=== PATIENT | female | born 1930 | race Hispanic/Latino ===

== ENCOUNTER 2019-08-03 10:06 | Outpatient (CLI) | payer MEDICARE ==
--- NOTE | 2019-08-03 10:47 | RAD ---
PA AND LATERAL VIEWS CHEST: Date: 08/03/2019 HISTORY: Low oxygen saturation. FINDINGS: There are no previous exams for comparison. The heart size is mildly enlarged. The aorta is tortuous. The lungs are expanded with mild infiltrate in the right lower lung. No pneumothoraces or large effusions are seen. A small left pleural effusio n versus scarring may be present. IMPRESSION: Findings are suspicious for right-sided pneumonia. POS: [facility]
== END 2019-08-03 10:07 | disposition home or self-care (01) ==
LOC: BICRAD 10:06
PROVIDERS: ATTEND Family Medicine
DX: Z00.00 Encounter for general adult medical examination without abnormal findings (principal); M54.9 Dorsalgia, unspecified; R09.02 Hypoxemia
CPT/HCPCS: 36415; 71046; 80053; 80061; 81001; 84443; 85025

== ENCOUNTER 2019-08-05 17:37 | Inpatient (IN) | payer MEDICARE, OTHER ==
[2019-08-05 18:41] LABS: #Lymphocytes 0.7 thou/uL (1.20-3.40); #Monocytes 0.9 thou/uL (0.11-0.59); #Neutrophils 6.2 thou/uL (1.40-6.50); %Basophils 0.1 % (0.0-1.0); %Eosinophils 0.1 % (0.0-10.0); %Lymphocytes 8.4 % (21.0-51.0); %Neutrophils 79.4 % (42.0-75.0); Hemoglobin 13.8 g/dL (12.0-16.0); Mean Corpuscular Hemoglobin 29.9 pg (27.0-31.0); Mean Corpuscular Volume 87.9 fL (78.0-98.0); Mean Platelet Volume 8.9 fL (7.4-10.4); Platelet Count 204 thou/uL (130-400); RBC Distribution Width 12.1 % (11.5-14.5); Red Blood Cell (RBC) Count 4.62 mill/uL (4.20-5.40); White Blood Cell (WBC) Count 7.8 thou/uL (4.8-10.8)
[2019-08-05] MEDS ORDERED: cefTRIAXone\\ROCEPHIN 2 GM VIAL ONE (19:04)
[2019-08-05] MEDS ORDERED: Sodium Chloride 0.9% 100 ML ONE (19:04)
[2019-08-05] MEDS ORDERED: Azithromycin 500 MG VIAL ONE (19:04)
[2019-08-05] MEDS ORDERED: Albuterol 200 PUFF (6.7GM INHALER) ONE (19:33)
[2019-08-05] MEDS ORDERED: Ondansetron PF 4 MG/2 ML Vial ONE (19:48)
--- NOTE | 2019-08-05 20:00 | RAD ---
CHEST ONE VIEW: 08/05/19 INDICATION: History of pneumonia. COMPARISON: Prior exam dated 08/03/19. FINDINGS: There are persistent areas of interstitial and air space opacity within the right lower lobe. Mild ca rdiomegaly is stable appearing. There is persistent blunting of the left costophrenic angle. No acute osseous abnormality is evident. IMPRESSION: 1. Persistent interstitial air space opacity of the right lower lobe suspicious for pneumonia. 2. Persistent blunting of the left costophrenic angle. POS: [facility]
[2019-08-05 20:09] LABS: ALT (SGPT) 13 U/L (8-55); AST (SGOT) 35 U/L (5-34); Albumin 2.4 g/dL (3.4-4.8); Alkaline Phosphatase 80 U/L (40-110); Anion Gap 10 mmol/L (10-20); BUN (Urea Nitrogen) 12 mg/dL (9.8-20.1); Bilirubin, Total 0.7 mg/dL (0.2-1.2); CRP (Inflammatory) 10.84 mg/dL (= or < 0.5); Calc. Creatinine Clearance 0 mL/min (70-130); Carbon Dioxide 25 mmol/L (23-31); Chloride 98 mmol/L (98-107); Estimated GFR-MDRD 83; Globulin 3.1 g/dL (2.4-3.5); Glucose 112 mg/dL (83-110); Potassium 3.3 mmol/L (3.5-5.1); Protein, Total 5.5 g/dL (6.0-8.3); Sodium 130 mmol/L (136-145)
--- NOTE | 2019-08-05 20:52 | PDOC.HHP ---
Hospitalist HPI - History of Present Illness Shortness of breath History of Present Illness: Patient with PMH of decreased hearing and HTN presents to ED for evaluation of worsening shortness of breath. She is a rather poor historian primarily due to her decreased hearing. Tells me that she has been sick for about 1-2 weeks with weakness/fatigue, body aches, mildly productive cough and shortness of breath. States that her shortness of breath started worsening yesterday hence decided to present for evaluation. Denies any sick contacts or known exposure to COVID19. Initial evaluation in ED reveals elderly female in no acute distress. Currently requiring 2L O2 NC. VS show low grade temperature of 100.1 but no fever. Only borderline tachycardia in the 110s. No leukocytosis, normal lactic acid, normal procalcitonin. Elevated D-dimer & CRP. Hospitalist ROS - Review of Systems Constitutional: reports: weakness, malaise. denies: fever, chills Eyes: denies: pain, conjunctivae inflammation ENT: denies: ear pain, nose pain, nose congestion, throat pain Respiratory: reports: cough, dry, shortness of breath, SOB with excertion, sputum (very mild sputum) Cardiovascular: denies: chest pain, palpitations, orthopnea, paroxysmal noc. dyspnea Gastrointestinal: denies: nausea, vomiting, abdominal pain, diarrhea Genitourinary: denies: dysuria, frequency, incontinence, hematuria Musculoskeletal: denies: neck pain Neurological: reports: weakness. denies: numbness, incoordination, change in speech - Exam General Appearance: NAD, awake alert Eye: PERRL ENT: normocephalic atraumatic ENT - other findings: Very hard of hearing Neck: supple, no JVD Heart: no murmur, normal peripheral pulses Respiratory - other findings: Bilateral rhonchi/rales Gastrointestinal: soft, non-tender, non-distended Extremities: no cyanosis, no clubbing, no edema Skin: normal turgor Neurological: cranial nerve grossly intact Musculoskeletal: normal tone, normal strength, no muscle wasting Psychiatric: normal affect, normal behavior, A&O x 3 Hospitalist Results - Labs Result Diagrams: 08/05/19 18:31 08/05/19 19:42 Lab results: WBC 7.8 thou/uL (4.8-10.8) 08/05/19 18:31 Hgb 13.8 g/dL (12.0-16.0) 08/05/19 18:31 Hct 40.6 % (36.0-47.0) 08/05/19 18:31 MCV 87.9 fL (78.0-98.0) 08/05/19 18:31 Plt Count 204 thou/uL (130-400) 08/05/19 18:31 Neutrophils % 79.4 % (42.0-75.0) H 08/05/19 18:31 Sodium 130 mmol/L (136-145) L 08/05/19 19:42 Potassium 3.3 mmol/L (3.5-5.1) L 08/05/19 19:42 Chloride 98 mmol/L (98-107) 08/05/19 19:42 Carbon Dioxide 25 mmol/L (23-31) 08/05/19 19:42 BUN 12 mg/dL (9.8-20.1) 08/05/19 19:42 Creatinine 0.67 mg/dL (0.6-1.1) 08/05/19 19:42 Glucose 112 mg/dL (83-110) H 08/05/19 19:42 Lactic Acid 2.0 mmol/L (0.5-2.2) 08/05/19 18:31 Calcium 7.0 mg/dL (7.8-10.44) L 08/05/19 19:42 Total Bilirubin 0.7 mg/dL (0.2-1.2) 08/05/19 19:42 AST 35 U/L (5-34) H 08/05/19 19:42 ALT 13 U/L (8-55) 08/05/19 19:42 Alkaline Phosphatase 80 U/L (40-110) 08/05/19 19:42 Troponin I 0.021 ng/mL (< 0.028) 08/05/19 18:31 C-Reactive Protein 10.84 mg/dL (= or < 0.5) H 08/05/19 19:42 B-Natriuretic Peptide 183.5 pg/mL (0-100) H 08/05/19 18:31 Serum Total Protein 5.5 g/dL (6.0-8.3) L 08/05/19 19:42 Albumin 2.4 g/dL (3.4-4.8) L 08/05/19 19:42 - Radiology Interpretation Chest x-ray Status: image reviewed by me (1. Persistent interstitial air space opacity of the right lower lobe suspicious for pneumonia. 2. Persistent blunting of the left costophrenic angle.) Hospitalist H&P A/P - Plan Plan: Problem List 1. Respiratory failure with hypoxia 2. Suspected COVID19 pneumonia 3. Dehydration with hyponatremia 4. Elevated D-dimer 5. History of hypertension Assessment/Plan 1. Respiratory failure with hypoxia - admit patient for further management - currently requiring 2 L O2 NC - titrate oxygen down as O2 sats allow - will hold off on use of steroids for now - start albuterol inhaler - COVID19 beign ruled out - IV ABX for empiric coverage while awaiting COVID19 results 2. Suspected COVID19 pneumonia - supportive care per above plan - check ferritin, LDH, CRP 3. Dehydration with hyponatremia - mild dehydration in setting of poor oral intake - continue with gentle IVFs - replace elctrolytes 4. Elevated D-dimer - in setting of acute infection possibly COVID19 - low concerns for VTE 5. History of hypertension - awaiting med rec - monitor hemodynamics closely DVT PPX: Lovenox
[2019-08-05] MEDS ORDERED: Acetaminophen 325 MG TAB PO PRN (22:05)
[2019-08-05] MEDS ORDERED: Loperamide HCl 2 MG CAP PO PRN (22:05)
[2019-08-05] MEDS ORDERED: Albuterol Sulfate 1.25 MG/3 ML NEB IPPB PRN (22:05)
[2019-08-05] MEDS ORDERED: Ondansetron PF 4 MG/2 ML Vial IVP PRN (22:05)
[2019-08-06] MEDS: Sodium Chloride 0.9% 1,000 ML IV SCH ×3 (03:14→17:41)
[2019-08-06 03:16] VITALS: BMI 20.1
[2019-08-06 06:20] LABS: Band 15 % (5-11); Hemoglobin 11.6 g/dL (12.0-16.0); Lymphocytes 5 % (21-51); MDiff Complete? YES; Mean Corpuscular HGB CONC 32.5 g/dL (32.0-36.0); Mean Corpuscular Hemoglobin 28.7 pg (27.0-31.0); Mean Corpuscular Volume 88.3 fL (78.0-98.0); Mean Platelet Volume 8.3 fL (7.4-10.4); Monocytes 15 % (0-10); Neutrophil 65 % (42-75); Platelet Count 185 thou/uL (130-400); Platelet Morphology Comment Appears Adequate; RBC Distribution Width 12.1 % (11.5-14.5); Red Blood Cell (RBC) Count 4.03 mill/uL (4.20-5.40); White Blood Cell (WBC) Count 6.4 thou/uL (4.8-10.8)
[2019-08-06 06:42] LABS: ALT (SGPT) 13 U/L (8-55); AST (SGOT) 28 U/L (5-34); Albumin 2.3 g/dL (3.4-4.8); Alkaline Phosphatase 67 U/L (40-110); Anion Gap 9 mmol/L (10-20); BUN (Urea Nitrogen) 11 mg/dL (9.8-20.1); Bilirubin, Total 0.6 mg/dL (0.2-1.2); Calc. Creatinine Clearance 50 mL/min (70-130); Calcium 7.2 mg/dL (7.8-10.44); Carbon Dioxide 25 mmol/L (23-31); Chloride 101 mmol/L (98-107); Estimated GFR-MDRD Greater than 90; Globulin 2.9 g/dL (2.4-3.5); Glucose 112 mg/dL (83-110); Potassium 3.4 mmol/L (3.5-5.1); Protein, Total 5.2 g/dL (6.0-8.3); Sodium 132 mmol/L (136-145)
[2019-08-06] MEDS: Enoxaparin Sodium 40 MG/0.4 ML SYRINGE SC SCH (08:19)
[2019-08-06] MEDS ORDERED: Prevnar 13-Val Conj/PF 0.5 ML SYRINGE IM ONE (09:00)
[2019-08-06] MEDS ORDERED: Azithromycin 500 MG in Sodium Chloride 0.9% 250 ML 250 ML IVPB SCH (10:00)
[2019-08-06] MEDS ORDERED: Potassium Citrate 10 MEQ TAB PO SCH (10:00)
--- NOTE | 2019-08-06 13:41 | PDOC.HOSPP ---
- Subjective Encounter Date: 08/06/19 Encounter Time: 12:20 Subjective: looks mildly ill, says not coughing much but some discomfort in the chest w.. coughing. overall feels ok, covid pending. - Objective Vital Signs & Weight: Vital Signs (12 hours) Temp Pulse Resp BP Pulse Ox 08/06/19 12:00 98.5 F 85 20 143/75 H 96 08/06/19 09:10 98.1 F 80 20 132/72 99 08/06/19 04:53 100 08/06/19 03:18 98.4 F 94 18 149/74 H 100 Weight Weight 110 lb 0.171 oz Result Diagrams: 08/06/19 05:53 08/06/19 05:53 Hospitalist ROS - Medication Medications: Active Medications Generic Name Dose Route Start Last Admin Trade Name Freq PRN Reason Stop Dose Admin Enoxaparin Sodium 40 mg 08/06/19 09:00 08/06/19 08:19 Lovenox SC 40 mg 0900 KIMI Administration Sodium Chloride 1,000 mls @ 100 mls/hr 08/05/19 22:15 08/06/19 08:20 Normal Saline 0.9% IV 1,000 mls .Q10H KIMI Administration - Exam General Appearance: NAD, awake alert Eye: PERRL ENT: normocephalic atraumatic Respiratory: CTAB, normal chest expansion Neurological: no focal deficits Psychiatric: A&O x 3 Hosp A/P - Plan 1. Respiratory failure with hypoxia 2. Suspected COVID19 pneumonia 3. Dehydration with hyponatremia 4. Elevated D-dimer 5. History of hypertension RLL penumonia per cxr -sats 96% w... 2 li O2 - d-dimer, ferrtin and crp high --monitor closely O2 sat s and get crp periodically --on ctx, zithro - also i am starting her on decadron and can dc once COVID r/o. -high risk for COVID as imflammatroy markers high, cxr w.. RLL infilterate and initial desats
[2019-08-06 14:55] LABS: SARS-CoV-2 MS2 Positive; SARS-CoV-2 N Gene Positive; SARS-CoV-2 S Gene Positive; SARS-CoV-2 orf1ab Positive
[2019-08-06] MEDS: cefTRIAXone\\ROCEPHIN 1 GM in Sodium Chloride 0.9% 100 ML IVPB SCH (16:50)
[2019-08-06] MEDS: Azithromycin 500 MG in Sodium Chloride 0.9% 250 ML 250 ML IVPB SCH (17:41)
[2019-08-07] MEDS: Sodium Chloride 0.9% 1,000 ML IV SCH ×2 (04:26→16:16)
[2019-08-07] MEDS: Enoxaparin Sodium 40 MG/0.4 ML SYRINGE SC SCH (08:03)
[2019-08-07 08:34] LABS: Band 10 % (5-11); Hemoglobin 10.6 g/dL (12.0-16.0); Lymphocytes 7 % (21-51); MDiff Complete? YES; Mean Corpuscular HGB CONC 34.1 g/dL (32.0-36.0); Mean Corpuscular Hemoglobin 30.5 pg (27.0-31.0); Mean Corpuscular Volume 89.4 fL (78.0-98.0); Mean Platelet Volume 8.1 fL (7.4-10.4); Monocytes 5 % (0-10); Neutrophil 78 % (42-75); Platelet Count 195 thou/uL (130-400); RBC Distribution Width 12.2 % (11.5-14.5); Red Blood Cell (RBC) Count 3.48 mill/uL (4.20-5.40); White Blood Cell (WBC) Count 5.5 thou/uL (4.8-10.8)
[2019-08-07] MEDS ORDERED: Dexamethasone 4 mg/ml Vial SLOW IVP SCH (09:00)
[2019-08-07] MEDS: cefTRIAXone\\ROCEPHIN 1 GM in Sodium Chloride 0.9% 100 ML IVPB SCH (16:17)
[2019-08-07] MEDS: Azithromycin 500 MG in Sodium Chloride 0.9% 250 ML 250 ML IVPB SCH (17:14)
--- NOTE | 2019-08-07 17:49 | PDOC.HOSPP ---
- Subjective Encounter Date: 08/07/19 Encounter Time: 17:47 Subjective: Ms. Lerma was seen today in follow-up of COVID infection. She says she feels ok. She noted a little phlem in her throat, that makes her want to cough, otherwise no problems. - Objective Vital Signs & Weight: Vital Signs (12 hours) Temp Pulse Resp BP Pulse Ox 08/07/19 16:20 98.4 F 84 20 160/76 H 94 L 08/07/19 12:00 98.1 F 84 18 168/80 H 94 L 08/07/19 08:05 98.0 F 85 20 158/75 H 94 L 08/07/19 08:00 94 L Weight Weight 110 lb 0.171 oz I&O: 08/06/19 08/07/19 08/08/19 06:59 06:59 06:59 Intake Total 1680 Balance 1680 Result Diagrams: 08/07/19 06:38 08/06/19 05:53 Hospitalist ROS - Medication Medications: Active Medications Generic Name Dose Route Start Last Admin Trade Name Freq PRN Reason Stop Dose Admin Acetaminophen 650 mg 08/05/19 22:05 08/07/19 04:26 Tylenol PO 650 mg Q4H PRN Administration Headache/Fever/Mild Pain (1-3) Dexamethasone 6 mg 08/07/19 09:00 08/07/19 08:06 Decadron SLOW IVP 6 mg DAILY KIMI Administration Enoxaparin Sodium 40 mg 08/06/19 09:00 08/07/19 08:03 Lovenox SC 40 mg 0900 KIMI Administration Sodium Chloride 1,000 mls @ 100 mls/hr 08/05/19 22:15 08/07/19 16:16 Normal Saline 0.9% IV 1,000 mls .Q10H KIMI Administration Ceftriaxone Sodium 1 gm/ 100 mls @ 200 mls/hr 08/06/19 17:00 08/07/19 16:17 Sodium Chloride IVPB 100 mls 1700 KIMI Administration Azithromycin 500 mg/ Sodium 250 mls @ 250 mls/hr 08/06/19 18:00 08/07/19 17: 14 Chloride IVPB 250 mls 1800 KIMI Administration - Exam Eye: PERRL, anicteric sclera Heart: RRR, no murmur, no gallops, no rubs Respiratory: rales (+ rales bilaterally, no rhonchi) Gastrointestinal: soft, non-tender, non-distended, normal bowel sounds, no palpable masses Extremities: no cyanosis (good distal pulses, ( d.p.) bilaterally), no edema Hosp A/P (1) Pneumonia due to COVID-19 virus Code(s): U07.1 - COVID-19; J12.89 - OTHER VIRAL PNEUMONIA Status: Acute (2) Acute respiratory failure with hypoxia Code(s): J96.01 - ACUTE RESPIRATORY FAILURE WITH HYPOXIA Status: Acute (3) Hypertension Code(s): I10 - ESSENTIAL (PRIMARY) HYPERTENSION Status: Chronic - Plan * Pneumonia due to COVID-19- continue supportive care * Will continue to trend Inflammatory markers * HTN- blood pressure is slightly elevated- will monitor- re-start home medications ( Losartan, but hold Hydrochlorothiazide ) * Will discontinue IV fluids, and dexamethazone
[2019-08-07] MEDS ORDERED: Non-Formulary Item 1 EACH (Albuterol Sulfate 2 PUFF) INH PRN (17:51)
[2019-08-07] MEDS ORDERED: Albuterol 200 PUFF (6.7GM INHALER) INH PRN (18:01)
[2019-08-08 06:28] LABS: Anion Gap 9 mmol/L (10-20); BUN (Urea Nitrogen) 8 mg/dL (9.8-20.1); Calc. Creatinine Clearance 56 mL/min (70-130); Calcium 7.9 mg/dL (7.8-10.44); Carbon Dioxide 26 mmol/L (23-31); Chloride 105 mmol/L (98-107); Estimated GFR-MDRD Greater than 90; Glucose 120 mg/dL (83-110); Potassium 4.2 mmol/L (3.5-5.1); Sodium 136 mmol/L (136-145)
[2019-08-08] MEDS: Enoxaparin Sodium 40 MG/0.4 ML SYRINGE SC SCH (07:41)
[2019-08-08] MEDS: Losartan 25 MG TAB PO SCH (07:41)
[2019-08-08] MEDS: Folic Acid/Vit B Comp W-C PO SCH (09:19)
[2019-08-08] MEDS: Saccharomyces boulardii 250 MG CAP PO SCH (09:19)
[2019-08-08] MEDS: Ascorbic Acid 500 mg Chewable Tablet PO SCH (09:19)
--- NOTE | 2019-08-08 16:03 | PDOC.HOSPP ---
- Subjective Encounter Date: 08/08/19 Encounter Time: 16:01 Subjective: Ms. Lerma was seen today in follow-up of COVID infection. She says she feels fine. No complaints. She denies feeling short of breath, except when she is up to go to the bathroom, or walk some in the room. - Objective Vital Signs & Weight: Vital Signs (12 hours) Temp Pulse Resp BP Pulse Ox 08/08/19 12:25 98.0 F 88 20 153/75 H 94 L 08/08/19 08:00 94 L 08/08/19 07:52 97.7 F 91 20 165/84 H 94 L 08/08/19 04:25 97.8 F 74 18 96 Weight Weight 110 lb 0.171 oz I&O: 08/07/19 08/08/19 08/09/19 06:59 06:59 06:59 Intake Total 1680 1840 Balance 1680 1840 Result Diagrams: 08/07/19 06:38 08/08/19 05:34 Hospitalist ROS - Medication Medications: Active Medications Generic Name Dose Route Start Last Admin Trade Name Freq PRN Reason Stop Dose Admin Acetaminophen 650 mg 08/05/19 22:05 08/07/19 04:26 Tylenol PO 650 mg Q4H PRN Administration Headache/Fever/Mild Pain (1-3) Ascorbic Acid 1,000 mg 08/08/19 09:00 08/08/19 09:19 Vitamin C PO 1,000 mg DAILY KIMI Administration Enoxaparin Sodium 40 mg 08/06/19 09:00 08/08/19 07:41 Lovenox SC 40 mg 0900 KIMI Administration Azithromycin 500 mg/ Sodium 250 mls @ 250 mls/hr 08/06/19 18:00 08/07/19 17: 14 Chloride IVPB 250 mls 1800 KIMI Administration Losartan Potassium 50 mg 08/08/19 09:00 08/08/19 07:41 Cozaar PO 50 mg DAILY KIMI Administration Saccharomyces Boulardii 250 mg 08/08/19 09:00 08/08/19 09:19 Florastor PO 250 mg DAILY KIMI Administration Vitamin B Complex/Vit C/Folic Acid 1 tab 08/08/19 09:00 08/08/19 09:19 Nephro-Layne Tablet PO 1 tab DAILY KIMI Administration - Exam Eye: PERRL, anicteric sclera Heart: RRR, no murmur, no gallops, no rubs, normal peripheral pulses Respiratory: rales (+ rales bilaterally to about mid lung field.) Gastrointestinal: soft, non-tender, non-distended, normal bowel sounds, no palpable masses Extremities: no cyanosis, no edema Hosp A/P (1) Pneumonia due to COVID-19 virus Code(s): U07.1 - COVID-19; J12.89 - OTHER VIRAL PNEUMONIA Status: Acute (2) Acute respiratory failure with hypoxia Code(s): J96.01 - ACUTE RESPIRATORY FAILURE WITH HYPOXIA Status: Acute (3) Hypertension Code(s): I10 - ESSENTIAL (PRIMARY) HYPERTENSION Status: Chronic - Plan * Pneumonia due to COVID-19- continue supportive care * Oxygen has been weaned down to 2 liters * Will continue to trend Inflammatory markers * HTN- blood pressure is slightly elevated- after Losartan . Will add Hydralazine as needed * Hopefully home in 1-2 days if she continues to improve
[2019-08-08] MEDS: Azithromycin 500 MG in Sodium Chloride 0.9% 250 ML 250 ML IVPB SCH (17:20)
[2019-08-09 06:34] LABS: Anion Gap 10 mmol/L (10-20); BUN (Urea Nitrogen) 9 mg/dL (9.8-20.1); CRP (Inflammatory) 5.04 mg/dL (= or < 0.5); Calc. Creatinine Clearance 58 mL/min (70-130); Calcium 8.3 mg/dL (7.8-10.44); Carbon Dioxide 26 mmol/L (23-31); Chloride 105 mmol/L (98-107); Estimated GFR-MDRD Greater than 90; Glucose 83 mg/dL (83-110); Potassium 3.8 mmol/L (3.5-5.1); Sodium 137 mmol/L (136-145)
[2019-08-09 07:18] LABS: Hemoglobin 12.3 g/dL (12.0-16.0); Mean Corpuscular Hemoglobin 29.4 pg (27.0-31.0); Mean Corpuscular Volume 89.2 fL (78.0-98.0); Mean Platelet Volume 8.4 fL (7.4-10.4); Platelet Count 287 thou/uL (130-400); RBC Distribution Width 12.1 % (11.5-14.5); Red Blood Cell (RBC) Count 4.19 mill/uL (4.20-5.40); White Blood Cell (WBC) Count 7.9 thou/uL (4.8-10.8)
[2019-08-09] MEDS: Ascorbic Acid 500 mg Chewable Tablet PO SCH (07:41)
[2019-08-09] MEDS: Enoxaparin Sodium 40 MG/0.4 ML SYRINGE SC SCH (07:41)
[2019-08-09] MEDS: Folic Acid/Vit B Comp W-C PO SCH (07:41)
[2019-08-09] MEDS: Saccharomyces boulardii 250 MG CAP PO SCH (07:41)
[2019-08-09] MEDS: Losartan 25 MG TAB PO SCH (07:41)
[2019-08-09 10:55] LABS: Lymphocytes 2 % (21-51); MDiff Complete? YES; Monocytes 8 % (0-10); Neutrophil 90 % (42-75); Platelet Morphology Comment Appears Adequate
[2019-08-09] MEDS ORDERED: Azithromycin 250 MG TAB PO SCH (12:45)
[2019-08-09] MEDS: hydrALAZINE 25 MG TAB PO PRN (14:31)
--- NOTE | 2019-08-09 16:45 | PDOC.HOSPP ---
- Subjective Encounter Date: 08/09/19 Encounter Time: 16:42 Subjective: Ms. Lerma was seen today in follow-up of COVID pneumonia. She says she feels fine. She denies chest pain or dyspnea. - Objective Vital Signs & Weight: Vital Signs (12 hours) Temp Pulse Resp BP Pulse Ox 08/09/19 15:48 98.4 F 91 18 166/81 H 93 L 08/09/19 11:40 97.8 F 87 18 180/99 H 95 08/09/19 07:45 98.2 F 92 20 184/95 H 93 L 08/09/19 07:41 93 L 08/09/19 04:55 97.8 F 83 16 150/82 H 93 L Weight Weight 110 lb 0.171 oz I&O: 08/08/19 08/09/19 08/10/19 06:59 06:59 06:59 Intake Total 1840 1570 Balance 1840 1570 Result Diagrams: 08/09/19 05:15 08/09/19 05:15 Hospitalist ROS - Medication Medications: Active Medications Generic Name Dose Route Start Last Admin Trade Name Freq PRN Reason Stop Dose Admin Acetaminophen 650 mg 08/05/19 22:05 08/07/19 04:26 Tylenol PO 650 mg Q4H PRN Administration Headache/Fever/Mild Pain (1-3) Ascorbic Acid 1,000 mg 08/08/19 09:00 08/09/19 07:41 Vitamin C PO 1,000 mg DAILY KIMI Administration Azithromycin 500 mg 08/09/19 12:45 08/09/19 14:31 Zithromax PO 08/09/19 23:59 500 mg ONE KIMI Administration Enoxaparin Sodium 40 mg 08/06/19 09:00 08/09/19 07:41 Lovenox SC 40 mg 0900 KIMI Administration Hydralazine HCl 25 mg 08/09/19 14:02 08/09/19 14:31 Apresoline PO 25 mg TIDPRN PRN Administration SBP Greater Than 170 Losartan Potassium 50 mg 08/08/19 09:00 08/09/19 07:41 Cozaar PO 50 mg DAILY KIMI Administration Saccharomyces Boulardii 250 mg 08/08/19 09:00 08/09/19 07:41 Florastor PO 250 mg DAILY KIMI Administration Vitamin B Complex/Vit C/Folic Acid 1 tab 08/08/19 09:00 08/09/19 07:41 Nephro-Layne Tablet PO 1 tab DAILY KIMI Administration - Exam Eye: PERRL, anicteric sclera Heart: RRR, no murmur, no gallops, no rubs, normal peripheral pulses Respiratory: CTAB, rales Gastrointestinal: soft, non-tender, non-distended, normal bowel sounds, no palpable masses Extremities: no cyanosis, no clubbing, no edema Skin: normal turgor, no rashes Hosp A/P (1) Pneumonia due to COVID-19 virus Code(s): U07.1 - COVID-19; J12.89 - OTHER VIRAL PNEUMONIA Status: Acute (2) Acute respiratory failure with hypoxia Code(s): J96.01 - ACUTE RESPIRATORY FAILURE WITH HYPOXIA Status: Acute (3) Hypertension Code(s): I10 - ESSENTIAL (PRIMARY) HYPERTENSION Status: Chronic - Plan * Pneumonia due to COVID-19- continue supportive care * Her inflammatory markers have continued to decline * Her oxygen saturations remained stable off supplemental oxygen at rest. it was around 92%. However not assessed with ambulation * Likely discharge home today or tomorrow, possibly with oxygen if her saturations drop with ambulation
[2019-08-10] MEDS: hydrALAZINE 25 MG TAB PO PRN (05:52)
[2019-08-10] MEDS: Enoxaparin Sodium 40 MG/0.4 ML SYRINGE SC SCH (08:47)
[2019-08-10] MEDS: Losartan 25 MG TAB PO SCH (08:48)
[2019-08-10] MEDS: Folic Acid/Vit B Comp W-C PO SCH (08:48)
[2019-08-10] MEDS: Saccharomyces boulardii 250 MG CAP PO SCH (08:48)
[2019-08-10] MEDS: Ascorbic Acid 500 mg Chewable Tablet PO SCH (08:49)
[2019-08-10] MEDS ORDERED: Azithromycin 250 MG TAB PO SCH (09:00)
[2019-08-10 10:18] VITALS: BP 164/80; TEMP 98.1
--- NOTE | 2019-08-10 12:43 | PDOC.HOSPP ---
- Subjective Encounter Date: 08/10/19 Encounter Time: 12:41 Subjective: Ms. Lerma was seen today in follow-up of COVID infection. She is feeling well. She is anxious to go home. - Objective Vital Signs & Weight: Vital Signs (12 hours) Temp Pulse Resp BP BP Pulse Ox 08/10/19 08:00 98.1 F 81 18 164/80 H 93 L 08/10/19 05:52 172/92 H 08/10/19 04:50 98.2 F 92 16 172/92 H 92 L Weight Weight 110 lb 0.171 oz I&O: 08/09/19 08/10/19 08/11/19 06:59 06:59 06:59 Intake Total 1570 1490 240 Balance 1570 1490 240 Result Diagrams: 08/09/19 05:15 08/09/19 05:15 Hospitalist ROS - Medication Medications: Active Medications Generic Name Dose Route Start Last Admin Trade Name Freq PRN Reason Stop Dose Admin Acetaminophen 650 mg 08/05/19 22:05 08/07/19 04:26 Tylenol PO 650 mg Q4H PRN Administration Headache/Fever/Mild Pain (1-3) Ascorbic Acid 1,000 mg 08/08/19 09:00 08/10/19 08:49 Vitamin C PO 1,000 mg DAILY KIMI Administration Azithromycin 500 mg 08/10/19 09:00 08/10/19 08:48 Zithromax PO 500 mg DAILY KIMI Administration Enoxaparin Sodium 40 mg 08/06/19 09:00 08/10/19 08:47 Lovenox SC 40 mg 0900 KIMI Administration Hydralazine HCl 25 mg 08/09/19 14:02 08/10/19 05:52 Apresoline PO 25 mg TIDPRN PRN Administration SBP Greater Than 170 Losartan Potassium 50 mg 08/08/19 09:00 08/10/19 08:48 Cozaar PO 50 mg DAILY KIMI Administration Saccharomyces Boulardii 250 mg 08/08/19 09:00 08/10/19 08:48 Florastor PO 250 mg DAILY KIMI Administration Vitamin B Complex/Vit C/Folic Acid 1 tab 08/08/19 09:00 08/10/19 08:48 Nephro-Layne Tablet PO 1 tab DAILY KIMI Administration - Exam Eye: PERRL, anicteric sclera Heart: RRR, no murmur, no gallops, no rubs, normal peripheral pulses Respiratory: rales (faint rales at both bases) Gastrointestinal: soft, non-tender, non-distended, normal bowel sounds, no palpable masses Extremities: no cyanosis, no edema Hosp A/P (1) Pneumonia due to COVID-19 virus Code(s): U07.1 - COVID-19; J12.89 - OTHER VIRAL PNEUMONIA Status: Acute (2) Acute respiratory failure with hypoxia Code(s): J96.01 - ACUTE RESPIRATORY FAILURE WITH HYPOXIA Status: Acute (3) Hypertension Code(s): I10 - ESSENTIAL (PRIMARY) HYPERTENSION Status: Chronic - Plan * Pneumonia due to COVID-19- improved. She continues to desaturate with ambulation * Will order home oxygen, and once this is arranged she can be discharge home.
--- NOTE | 2019-08-11 02:22 | DIS ---
DATE OF ADMISSION: 08/05/2019 DATE OF DISCHARGE: 08/10/2019 PRIMARY CARE PHYSICIAN: Wan Randall MD DISCHARGE DIAGNOSES: 1. COVID-19 pneumonia. 2. Acute respiratory failure secondary to #1. 3. Hypertension. 4. Dehydration and mild hyponatremia. DISCHARGE MEDICATIONS: Include: 1. Vitamin C 1000 mg daily. 2. Cozaar 50 mg daily. 3. Hydrochlorothiazide 12.5 mg daily. 4. ProAir inhaler 2 puffs q.6 as needed. CODE STATUS: Full code. ALLERGIES: NO KNOWN DRUG ALLERGIES. HOSPITAL COURSE: Ms. Lerma is a very pleasant 88-year-old female, who was admitted to the hospital after she was having shortness of breath. She never had fever. She had been sick for about 1 to 2 weeks with weakness and body aches and fatigue. There was concern for possible COVID exposure and therefore a screen was done. This came back positive. She was admitted to the hospital and monitored under supportive care. She was placed on azithromycin. Inflammatory markers were trended and when her inflammatory markers began to trend down and her need for supplemental oxygen was reduced, she was able to be discharged home to have close outpatient followup. She was discharged home with home oxygen. In that, her O2 saturation at rest was above 90, but when she got up and moved around, she desaturated and for this reason, she will be sent home with temporary home oxygen. Job ID: [id number]
--- NOTE | 2019-08-13 03:00 | PQF ---
Fely Lerma TONI MD [id number] CLINICAL DOCUMENTATION CLARIFICATION FORM: POST DISCHARGE Addendum to original discharge summary date: ____ Late entry note date: __ DATE: 08/13/2019 ATTN: Alireza Gomez Please exercise your independent, professional judgment in responding to the clarification form. Clinical indicators are provided on the bottom of this form for your review Please check appropriate box(s) to clarify if the following diagnosis has been ruled in or ruled out: Sepsis [ X ] Ruled in diagnosis [ X] Continue to treat [ ] Resolved [ ] Ruled out diagnosis [ ] Cannot rule out diagnosis [ ] Other diagnosis [ ] Unable to determine For continuity of documentation, please document condition throughout progress notes and discharge summary. Thank You. CLINICAL INDICATORS - SIGNS / SYMPTOMS / LABS Covid 19 PCR 08/04 Positive Blood culture 08/04 No growth in 5 days Laboratory 08/04 WBC 7.8, Neutrophils 79.4, Plt count 204, Band 15, Lactic acid 2.0 Vital signs 08/04 BP 121/67, Pulse 112, Resp 30, Temp 100.1 Chest X-ray 08/04 Impression: RLL infiltrates ED notes p3 08/04 SIRS scoring: Yes, patient did meets at least 2 criteria ED notes p10 08/04 Pneumonia, Sepsis H&p p2 08/04 Covid 19 Pneumonia H&p p2 08/04 Respiratory failure with hypoxia RISK FACTORS H&p p1 08/04 88 year-old H&p p2 08/04 Covid 19 Pneumonia H&p p1 08/04 HTN TREATMENTS MAR 08/04 IV Rocephin 2 gm APR 22 Azithromycin 500 mg oral APR 22 IVF NS 1L APR 22 IV Decadron 6 mg Covid 19 PCR 08/04 Blood culture 08/04 Respiratory panel 08/04 Oxygen 2L Isolation ordered 08/04 Chest X-ray 08/04 (This form is maintained as a part of the permanent medical record) 2014 [employer] All Rights Reserved [email or web address]
== END 2019-08-10 15:35 | disposition home or self-care (01) | DRG 871 ==
LOC: ERS 17:37 → T4-B 21:05
PROVIDERS: ADMIT Internal Medicine; ATTEND Internal Medicine
PROC: 8E0ZXY6 Isolation (ICD-10-PCS; principal; 2019-08-09)
DX: A41.89 Other specified sepsis (principal); U07.1 COVID-19; J96.01 Acute respiratory failure with hypoxia; J12.89 Other viral pneumonia; E87.1 Hypo-osmolality and hyponatremia; E86.0 Dehydration; I10 Essential (primary) hypertension; Z79.899 Other long term (current) drug therapy; Z90.710 Acquired absence of both cervix and uterus; Z28.21 Immunization not carried out because of patient refusal
CPT/HCPCS: 36415; 71045; 80048; 80053; 82728; 83605; 83615; 83880; 84145; 84484; 85025; 85379; 86140; 87040; 87635; 93005; 96365; 96375; J0456; J0696; J1100; J1650; J2405; J3490; J7050; U0003